=== PATIENT | female | born 1985 | race Hispanic/Latino ===

== ENCOUNTER 2016-11-20 19:07 | Emergency (ER) | payer SELFPAY ==
[~2016-11-20] VITALS: Ht 157.5 cm; Wt 55.7 kg
[~2016-11-20 19:07] MED LIST: IRON1TAB89 PO; OMEP20TA86 PO; PREN1TAB73 PO
[2016-11-20 19:21] VITALS: BP 102/65; PULSE 63; RESP 16; O2SAT 100
--- NOTE | 2016-11-20 20:39 | ED.REPORT ---
HPI-Abd Pain F Under 38 Date of Service Nov 20, 2016 ED Provider: Chaparro Aranda MD Pt is a generally healthy 31 y/o female presenting to the ED c/o suprapubic abdominal pain onset 2 weeks ago. She c/o associated mild lumbar back pain, mild hematuria, nausea. She denies fever, vomiting, overt dysuria. She has no history of kidney stones. She has had a tubal ligation. She does have a new sexual partner and has noticed small amounts of white vaginal discharge today. Nursing Notes Stated Complaint: ABDOMINAL PAIN Chief Complaint: Female Abdominal Pain Nursing Notes Reviewed: Yes Allergies: Coded Allergies: No Known Allergies (Unverified , 11/20/16) Scheduled Cephalexin (Keflex) 500 Mg Capsule 500 MG PO QID Doxycycline Monohyd (Doxycycline Monohyd) 100 Mg Tablet 100 MG PO BID Iron Fum/Vit C/Ascorbate Sod (Cvs Iron Plus Vitamin C Tablet) 1 Each Tablet 1 EACH PO DAILY Omeprazole (Omeprazole) 20 Mg Tablet.dr 20 MG PO DAILY Vit/Fe Fumarate/Fa-Expunged Drug, Do (-Expunged Drug, Do Not Renew!) 1 Tab Tablet 1 TAB PO DAILY General Time Seen by MD: 20:35 Chief Complaint Abdominal pain Hx Obtained From: Patient Arrived By: Walk-in Sudden in Onset?: No Onset Occurred: More than a week ago... (2 weeks) Symptom Duration: Since onset Progression since Onset: Constant Location: : Suprapubic Quality: Aching Radiation: : Does not radiate Severity: Current: Mild Severity: Maximum: Moderate Similar Sx Previous: No Past Medical History Past Medical History Notes: PCP: [facility] Past Medical History Past Surgical History Umbilical hernia repaired in 2010 Tubal ligation Family History The patient is unsure. Her mother when she was young but does not know what from. Smoking History Never Smoker Social History Alcohol Use: Denies alcohol use Drug Use: Denies drug use Other Social History: Good social support, Lives with children, Local resident Ambulatory Status Independent Review of Systems Constitutional: Denies: Chills, Fever Respiratory: Denies: Non-productive cough, Shortness of breath Cardiovascular: Denies: Chest pain GI: Reports: Abdominal pain, Nausea, Denies: Vomiting Female: Reports: Hematuria, Vaginal discharge, Denies: Dysuria Complete sys rev & neg: except as marked. Physical Exam Initial Vital Signs Vital Signs (First) Date Time Temp Pulse Resp B/P Pulse Ox O2 Delivery O2 Flow Rate FiO2 11/20/16 19:21 36.8 63 16 102/65 100 Room Air Initial VS: Reviewed, Vital signs normal Head / Eyes: Atraumatic, Normocephalic, PERRL ENT: Mucous membranes moist, Conjunctiva normal, No scleral icterus Neck: Supple, Full range of motion Extremities: Vascular intact, Neuro intact, No swelling Skin: Warm, Dry, No cyanosis Neurologic: Alert, Oriented, Nonfocal Psychiatric: Mood/affect normal, Behavior normal, Normal thought content General/Constitutional: Awake, Alert, No acute distress, Well appearing, Cooperative, Not toxic appearing Respiratory / Chest: Breath sounds NL, Breath sounds = bilat, No respiratory distress, No rales, No rhonchi, No wheezing, No retractions, No stridor Cardiovascular: Heart rate NL, Regular rhythm, Heart sounds NL, No murmurs Abdomen: Atraumatic, Soft, No guarding, No rebound, No distention, No palpable mass Tenderness/Guarding/Rebound: Positive: Tender suprapubic (mild) Back: Full range of motion, Painless range of motion, No CVA tenderness Female Genitourinary: [employer] present (PEPE [place]), Atraumatic, External genitalia NL, No bleeding, No cervical motion tend, No foreign body, No adnexal mass, No adnexal tenderness Thick white discharge present Interpretation & Diagnostics Lab Results Interpretation Result Diagram: 11/20/16204211/20/162042 Test 11/20/16 20:40 11/20/16 20:43 11/20/16 21:15 Hold Urine Received (Received) White Blood Count 7.1th/mm3 (3.8-10.1) Red Blood Count 4.33mil/mm3 (3.90-5.20) Hemoglobin 12.6g/dL (12.0-15.6) Hematocrit 37.5% (35.0-46.0) Mean Corpuscular Volume 86.6fL (81-100) Mean Corpuscular Hemoglobin 29.1pg (27.0-35.0) Mean Corpuscular Hemoglobin Concent 33.6% (32.0-37.0) Red Cell Distribution Width 12.1% (12.3-15.4) Platelet Count 253bil/L (150-400) Neutrophils (%) (Auto) 55.5% (40-74) Lymphocytes (%) (Auto) 34.2% (14-46) Monocytes (%) (Auto) 7.9% (4-12) Eosinophils (%) (Auto) 2.0% (0-5) Basophils (%) (Auto) 0.3% (0-3) Sodium Level 137mEq/L (134-144) Potassium Level 3.4mEq/L (3.5-5.2) Chloride Level 100mEq/L (97-108) Carbon Dioxide Level 25mmol/L (18-29) Blood Urea Nitrogen 8mg/dL (6-20) Creatinine 0.44mg/dL (0.57-1.00) Estimat Glomerular Filtration Rate 236mL/min (>59) Glucose Level 110mg/dL (60-99) Calcium Level 8.9mg/dL (8.5-10.1) Magnesium Level 2.1mg/dL (1.6-2.6) Total Bilirubin 0.3mg/dL (0.0-1.2) Aspartate Amino Transf (AST/SGOT) 16U/L (0-50) Alanine Aminotransferase (ALT/SGPT) 11U/L (0-32) Alkaline Phosphatase 55U/L (25-150) Total Protein 7.5g/dL (6.4-8.4) Albumin 4.3g/dL (3.4-5.0) Lipase 29U/L (13-60) Re-Eval/Medical Decision Med Decision/Clinical Course Med Decision/Clinical Course: 31-year-old female presenting with suprapubic pain 2 weeks. Also reports quite discharged today. She reports dysuria and some hematuria. Her urine suggests UTI. Her labs are unremarkable. She does have white discharge on pelvic exam with no cervical motion tenderness or adnexal tenderness. She had a recent sexual contact with her boyfriend who just returned from deployment. Patient will be treated for UTI with Keflex. She was given one dose or Rocephin here. I am also concerned about the possibility of GC chlamydia given the appearance of the discharge. There is no evidence of PID at this time. She was given Rocephin and doxycycline here. She will be treated with doxycycline pending. Chlamydia results. She is advised to follow up with primary doctor tomorrow for results. Return precautions given. Re-Evaluation/Progress : Time of Eval: 22:06 Re-Evaluation/Progress Note: Pt rechecked. Informed pt of plan for treatment. Pt understands and agrees with plan for treatment. F/U instructions and RTER warnings given. All questions addressed. Counseled Regarding: Diagnosis, Lab results, Need for follow-up, When/why to return to ED Discharge & Departure Primary Impression: UTI (urinary tract infection) Urinary tract infection type: site unspecified Hematuria presence: with hematuria Qualified Code: N39.0 - Urinary tract infection, site not specified Additional Impression: White vaginal discharge Disposition: Home Discharge Condition All VS Reviewed: Yes Condition: Stable Patient Instructions: Urinary Tract Infection in Women (ED) Additional Instructions: Your urine shows signs of infection. Your pelvic exam is unspecific but your discharge may be caused by chlamydia or gonorrhea. We have labs pending to test both of these and the results should be available tomorrow. Take the full course of doxycycline and Keflex for the presumed UTI and possible chlamydia/gonorrhea. I recommend you follow-up with your primary care doctor tomorrow for a recheck and to discuss the lab results. Return to the emergency department for worsening abdominal pain, vomiting, fever , shaking chills, worsening back pain, or for other concerning symptoms. Referrals: formerly [facility] (PCP) Britney Attestation Portions of this note were transcribed by Gen Willett. I, Dr. Aranda personally performed the history, physical exam and medical decision-making; I reviewed and confirmed the accuracy of the information in the transcribed note. Signed by Britney Curtis, 11/20/162099 copies to: [facility] Chaparro Aranda MD Nov 20, 2016 20:39 GEN WILLETT Nov 20, 2016 20:55
[2016-11-20] MEDS ORDERED: cefTRIAXone Inj 1,000 MG, Lidocaine PF 1% Inj 2.1 ML in Syringe 0 EACH IM ONE (20:55)
[2016-11-20 21:06] LABS: BASOPHILS % (AUTO) 0.3 % (0-3); MONOCYTES % (AUTO) 7.9 % (4-12); Mean Corpuscular Hemoglobin 29.1 pg (27.0-35.0); Mean Corpuscular Volume 86.6 fL (81-100); NEUTROPHILS % (AUTO) 55.5 % (40-74); Platelet Count 253 bil/L (150-400)
[2016-11-20 21:28] LABS: Magnesium 2.1 mg/dL (1.6-2.6)
[2016-11-20] MEDS ORDERED: CEPH-512 PO (22:07)
[2016-11-20] MEDS ORDERED: DOXY-232 PO (22:07)
[2016-11-20 22:25] VITALS: BP 112/70; PULSE 89; RESP 16; O2SAT 99
== END 2016-11-20 22:26 | disposition home or self-care (01) ==
LOC: SED 19:07
DX: N39.0 Urinary tract infection, site not specified (principal); N89.8 Other specified noninflammatory disorders of vagina
CPT/HCPCS: 36415; 80053; 81025; 83690; 83735; 85025; 87210; 87491; 87591; 96372; 99284; J0696